=== PATIENT | female | born 1975 | race Caucasian/White ===

== ENCOUNTER 2019-04-26 23:39 | Emergency (ER) | payer MEDICAID ==
[~2019-04-26] VITALS: Ht 162.6 cm; Wt 63.6 kg
[2019-04-26 23:43] VITALS: Ht 162.6 cm; Wt 63.6 kg
[2019-04-26] MEDS ORDERED: EFFEXOR XR150 MG PO (23:44)
[2019-04-26] MEDS ORDERED: CONCERTA 54 MG54 MG PO (23:44)
[2019-04-26] MEDS ORDERED: GLUCOPHAGE500 MG PO (23:44)
[2019-04-26] MEDS ORDERED: CATAPRES0.1 MG PO (23:45)
[2019-04-27] MEDS ORDERED: KEFLEX500 MG PO (00:53)
[2019-04-27] MEDS ORDERED: CLEOCIN HCL300 MG PO (00:53)
[2019-04-27] MEDS ORDERED: ACETAMINOPHEN500 M1 PO (00:55)
[2019-04-27] MEDS ORDERED: DIFLUCAN150 MG PO (00:55)
[2019-04-27] MEDS ORDERED: IBUPROFEN800 MG PO (00:55)
[2019-04-27 01:13] VITALS: BP 122/71
== END 2019-04-27 01:13 | disposition home or self-care (01) ==
LOC: D.ER 23:39
DX: S61.211A Laceration without foreign body of left index finger without damage to nail, initial encounter (principal); W26.0XXA Contact with knife, initial encounter; Y93.89 Activity, other specified; Y92.89 Other specified places as the place of occurrence of the external cause